=== PATIENT | female | born 1990 | race Caucasian/White ===

== ENCOUNTER → 2020-03-25 13:52 | Outpatient (BNVA) | payer MEDICAID, SELFPAY | PROVIDERS: Visit Provider Internal Medicine | DX: F11.99 Opioid use, unspecified with unspecified opioid-induced disorder (principal) | CPT/HCPCS: 80305; 99211 ==

== ENCOUNTER → 2020-04-09 13:24 | Outpatient (BNVA) | payer MEDICAID, SELFPAY | PROVIDERS: Visit Provider Internal Medicine | DX: Z51.81 Encounter for therapeutic drug level monitoring (principal); Z79.899 Other long term (current) drug therapy | CPT/HCPCS: 80305; 99211 ==

== ENCOUNTER → 2020-04-23 13:58 | Outpatient (BNVA) | payer MEDICAID, SELFPAY | PROVIDERS: Visit Provider Internal Medicine | DX: F11.99 Opioid use, unspecified with unspecified opioid-induced disorder (principal) | CPT/HCPCS: 80305; 99211 ==

== ENCOUNTER → 2020-05-21 14:58 | Outpatient (BNVA) | payer MEDICAID, SELFPAY | PROVIDERS: Visit Provider Internal Medicine | DX: Z76.89 Persons encountering health services in other specified circumstances (principal) ==

== ENCOUNTER → 2020-06-18 15:08 | Outpatient (BNVA) | payer MEDICAID, SELFPAY | PROVIDERS: Visit Provider Internal Medicine | DX: Z76.89 Persons encountering health services in other specified circumstances (principal) ==

== ENCOUNTER → 2020-07-02 15:09 | Outpatient (BNVA) | payer MEDICAID, SELFPAY | PROVIDERS: PCP Nurse Practitioner Family; Visit Provider Internal Medicine | DX: Z76.89 Persons encountering health services in other specified circumstances (principal) ==

== ENCOUNTER → 2020-07-16 13:05 | Outpatient (BNVA) | payer MEDICAID, SELFPAY | PROVIDERS: Visit Provider Internal Medicine | DX: Z76.89 Persons encountering health services in other specified circumstances (principal) ==

== ENCOUNTER → 2020-07-30 13:11 | Outpatient (BNVA) | payer MEDICAID, SELFPAY | PROVIDERS: Visit Provider Internal Medicine ==

== ENCOUNTER → 2020-08-20 13:38 | Outpatient (BNVA) | payer MEDICAID, SELFPAY | PROVIDERS: Visit Provider Internal Medicine | DX: F11.20 Opioid dependence, uncomplicated (principal) | CPT/HCPCS: 80305; 99212 ==

== ENCOUNTER → 2020-09-17 13:37 | Outpatient (BNVA) | payer MEDICAID, SELFPAY | PROVIDERS: Visit Provider Internal Medicine | DX: F11.99 Opioid use, unspecified with unspecified opioid-induced disorder (principal); Z51.81 Encounter for therapeutic drug level monitoring | CPT/HCPCS: 80305; 99212 ==

== ENCOUNTER → 2020-10-15 13:44 | Outpatient (BNVA) | payer MEDICAID, SELFPAY | PROVIDERS: Visit Provider Internal Medicine | DX: Z51.81 Encounter for therapeutic drug level monitoring (principal) | CPT/HCPCS: 80305; 99211 ==

== ENCOUNTER → 2020-11-12 15:09 | Outpatient (BNVA) | payer MEDICAID, SELFPAY | PROVIDERS: Visit Provider Internal Medicine | DX: F11.20 Opioid dependence, uncomplicated (principal); Z51.81 Encounter for therapeutic drug level monitoring; Z79.899 Other long term (current) drug therapy | CPT/HCPCS: 80305; 99211 ==

== ENCOUNTER → 2020-12-10 15:22 | Outpatient (BNVA) | payer MEDICAID, SELFPAY | PROVIDERS: Visit Provider Internal Medicine | DX: Z51.81 Encounter for therapeutic drug level monitoring (principal) | CPT/HCPCS: 80305; 99211 ==

== ENCOUNTER → 2021-01-07 15:30 | Outpatient (BNVA) | payer MEDICAID, SELFPAY | PROVIDERS: Visit Provider Internal Medicine | DX: Z51.81 Encounter for therapeutic drug level monitoring (principal) | CPT/HCPCS: 80305 ==

== ENCOUNTER → 2021-02-04 15:51 | Outpatient (BNVA) | payer MEDICAID, SELFPAY | PROVIDERS: Visit Provider Internal Medicine | DX: Z51.81 Encounter for therapeutic drug level monitoring (principal) | CPT/HCPCS: 80305 ==

== ENCOUNTER 2021-03-04 13:23 | Outpatient (REF) | payer MEDICAID, SELFPAY ==
[2021-03-04 17:15] LABS: Fentanyl, urine Not Detected (Not Detect)
[2021-03-14 07:31] LABS: Buprenorphine 319
[2021-03-14 07:32] LABS: Norbuprenorphine 805
[2021-03-14 07:33] LABS: Naloxone 553
== END 2021-03-04 13:24 | disposition home or self-care (01) ==
LOC: HO.LAB 13:23
PROVIDERS: Visit Provider Internal Medicine
DX: F11.20 Opioid dependence, uncomplicated (principal)
CPT/HCPCS: 80305; 80307; 80348; 80362; 99212

== ENCOUNTER → 2021-04-01 14:40 | Outpatient (BNVA) | payer MEDICAID, SELFPAY | PROVIDERS: Visit Provider Internal Medicine | DX: Z51.81 Encounter for therapeutic drug level monitoring (principal); F11.90 Opioid use, unspecified, uncomplicated | CPT/HCPCS: 80305; 99212 ==

== ENCOUNTER → 2021-04-29 15:19 | Outpatient (BNVA) | payer MEDICAID, SELFPAY | PROVIDERS: Visit Provider Internal Medicine | DX: F11.99 Opioid use, unspecified with unspecified opioid-induced disorder (principal); Z88.1 Allergy status to other antibiotic agents; Z88.0 Allergy status to penicillin; Z51.81 Encounter for therapeutic drug level monitoring | CPT/HCPCS: 80305; 99212 ==

== ENCOUNTER → 2021-05-27 14:56 | Outpatient (BNVA) | payer MEDICAID, SELFPAY | PROVIDERS: Visit Provider Internal Medicine | DX: Z51.81 Encounter for therapeutic drug level monitoring (principal); F11.20 Opioid dependence, uncomplicated | CPT/HCPCS: 80305; 99212 ==

== ENCOUNTER → 2021-06-24 14:17 | Outpatient (BNVA) | payer MEDICAID, SELFPAY | PROVIDERS: Visit Provider Internal Medicine | DX: Z51.81 Encounter for therapeutic drug level monitoring (principal); F11.20 Opioid dependence, uncomplicated | CPT/HCPCS: 80305; 99212 ==

== ENCOUNTER → 2021-08-21 13:32 | Outpatient (BNVA) | payer MEDICAID, SELFPAY | PROVIDERS: Visit Provider Internal Medicine | DX: Z51.81 Encounter for therapeutic drug level monitoring (principal); F11.20 Opioid dependence, uncomplicated | CPT/HCPCS: 80305; 99212 ==

== ENCOUNTER → 2021-10-14 14:36 | Outpatient (BNVA) | payer MEDICAID, SELFPAY | PROVIDERS: Visit Provider Internal Medicine | DX: F11.20 Opioid dependence, uncomplicated (principal) | CPT/HCPCS: 80305; 99212 ==

== ENCOUNTER → 2021-12-09 14:32 | Outpatient (BNVA) | payer MEDICAID, SELFPAY | PROVIDERS: Visit Provider Internal Medicine | DX: Z51.81 Encounter for therapeutic drug level monitoring (principal); F11.20 Opioid dependence, uncomplicated | CPT/HCPCS: 80305; 99212 ==

== ENCOUNTER → 2022-02-03 14:38 | Outpatient (BNVA) | payer MEDICAID, SELFPAY | PROVIDERS: Visit Provider Internal Medicine | DX: F11.20 Opioid dependence, uncomplicated (principal) | CPT/HCPCS: 99212 ==

== ENCOUNTER → 2022-03-31 14:49 | Outpatient (BNVA) | payer MEDICAID, SELFPAY | PROVIDERS: Visit Provider Internal Medicine | DX: F11.20 Opioid dependence, uncomplicated (principal); Z51.81 Encounter for therapeutic drug level monitoring; Z79.899 Other long term (current) drug therapy | CPT/HCPCS: 99212 ==

== ENCOUNTER → 2022-05-26 11:16 | Outpatient (BNVA) | payer MEDICAID, SELFPAY | PROVIDERS: Visit Provider Internal Medicine | DX: F11.20 Opioid dependence, uncomplicated (principal) | CPT/HCPCS: 99212 ==

== ENCOUNTER → 2022-07-20 15:54 | Outpatient (BNVA) | payer MEDICAID, SELFPAY | PROVIDERS: PCP Nurse Practitioner Family; Visit Provider Nurse Practitioner Psychiatric/Mental Health | DX: F11.20 Opioid dependence, uncomplicated (principal) | CPT/HCPCS: 99212 ==

== ENCOUNTER 2022-09-15 13:01 | Outpatient (REF) | payer MEDICAID, SELFPAY ==
[2022-09-15 14:47] LABS: Alanine Aminotransferase 16 U/L (0-31); Alkaline Phosphatase 82 U/L (39-117); Aspartate Amino Transferase 18 U/L (5-31); Bilirubin Direct < 0.2 mg/dL (0.0-0.5); Bilirubin Total 0.2 mg/dL (0.0-1.0); Total Protein 6.7 g/dL (6.5-8.0)
== END 2022-09-15 13:02 | disposition home or self-care (01) ==
LOC: HO.LAB 13:01
PROVIDERS: Absent Provider Nurse Practitioner Psychiatric/Mental Health; PCP Nurse Practitioner Family; Visit Provider Nurse Practitioner Psychiatric/Mental Health
DX: F11.20 Opioid dependence, uncomplicated (principal); Z79.899 Other long term (current) drug therapy
CPT/HCPCS: 36415; 80076; 80305; 99212

== ENCOUNTER → 2022-11-10 13:11 | Outpatient (BNVA) | payer MEDICAID, SELFPAY | PROVIDERS: PCP Nurse Practitioner Family; Visit Provider Nurse Practitioner Psychiatric/Mental Health | DX: F11.20 Opioid dependence, uncomplicated (principal) | CPT/HCPCS: 99212 ==

== ENCOUNTER 2023-01-12 14:01 | Outpatient (AMB) | payer OTHER, SELFPAY ==
[2023-01-12 14:08] VITALS: BP 108/66; PULSE 94; O2SAT 99
--- NOTE | 2023-01-12 14:08 | A.OFFVIS_ITS ---
Intake Vital Signs 01/12/23 14:08 BP 108/66 Blood Pressure Location Lt brachial Position Sitting Pulse 94 Pulse Oximetry (%) 99 Intake Visit Reasons: MAT Visit Allergies penicillin G Allergy (Verified 11/10/22 13:24) Unknown HPI MAT Visit HPI Details Patient presents for follow up Recently re-established care and services following insurance challenges Medication changes with psychiatry changed from Lexapro to Prozac 20mg reatrted therapy discussed Sublocade, hailey due to challenges obtaining suboxone over the last month [facility] Medical History Opioid use disorder Review of Systems Const Reports as per HPI and Reports no additional complaints Physical Exam Vital Signs: Last Vital Signs Pulse 94 01/12/23 14:08 BP 108/66 01/12/23 14:08 Pulse Ox 99 01/12/23 14:08 Const General: cooperative, healthy appearing, comfortable, well developed and alert Nutritional Appearance: well nourished Orientation/consciousness: patient oriented x3 Limitations: no limitations Neuro General: patient oriented x3 Psych Appearance: well kempt Mental Status: mental status grossly normal Speech and movement: Normal speech and movement present Affect: normal affect Attitude: cooperative Thought process: Normal thought process present Thought content: Normal thought content present Insight: Good insight present (Psych) Judgement: Good judgement present (Psych) Results AMB 14 Panel Urine Drug Screen 2 Urine Marijuana (THC) Positive Last Edit by Linh Dias RN on 01/12/23 15:1 1 Urine Cocaine Negative Last Edit by Linh Dias RN on 01/12/23 15:11 Urine Morphine Negative Last Edit by Linh Dias RN on 01/12/23 15:11 Urine Methamphetamine Negative Last Edit by Linh Dias RN on 01/12/23 15:1 1 Urine Amphetamine Negative Last Edit by Linh Dias RN on 01/12/23 15:11 Urine Benzodiazepine Negative Last Edit by Linh Dias RN on 01/12/23 15:11 Urine Barbiturates Negative Last Edit by Linh Dias RN on 01/12/23 15:11 Urine Methadone Negative Last Edit by Linh Dias RN on 01/12/23 15:11 Urine Buprenorphine Positive Last Edit by Linh Dias RN on 01/12/23 15:11 Urine Tricyclic Antidepressant Negative Last Edit by Linh Dias RN on 01/12/23 15:11 Urine MDMA Negative Last Edit by Linh Dias RN on 01/12/23 15:11 Urine Oxycodone Negative Last Edit by Linh Dias RN on 01/12/23 15:11 Urine Phencyclidine Negative Last Edit by Linh Dias RN on 01/12/23 15:11 Urine Propoxyphene Negative Last Edit by Linh Dias RN on 01/12/23 15:11 Results Reviewed Results Reviewed: Laboratory Last Values POC Urine Buprenorphine Positive 01/12/23 15:08 POC Urine Morphine Negative 01/12/23 15:08 POC Urine Oxycodone Negative 01/12/23 15:08 POC Urine Methadone Negative 01/12/23 15:08 POC Urine Propoxyphene Negative 01/12/23 15:08 POC Urine Barbiturates Negative 01/12/23 15:08 POC U Tricyclic Antidpr Negative 01/12/23 15:08 POC Urine PCP Negative 01/12/23 15:08 POC Ur Amphetamines Negative 01/12/23 15:08 POC Ur Methamphetamine Negative 01/12/23 15:08 POC Urine MDMA Negative 01/12/23 15:08 POC Ur Benzodiazepine Negative 01/12/23 15:08 POC Urine Cocaine Negative 01/12/23 15:08 POC Ur Marijuana (THC) Positive 01/12/23 15:08 Assessment & Plan Assessment & Plan (1) Opioid use disorder in remission: Code(s): F11.91 - Opioid use, unspecified, in remission Plan: * continue suboxone at current dose * follow up 8 weeks Orders: Orders AMB 14 Panel Urine Drug Screen 01/12/23 Z51.81 - Encounter for therapeutic drug level monitoring Medications: Refilled buprenorphine-naloxone 8-2 mg (Suboxone) 1 film sublingual BID 60 ea 1RF 30 days Coding Level of Care Code Est Pt Level 3 (90618) Diagnoses Opioid use disorder in remission F11.91
== END 2023-01-12 14:35 | disposition home or self-care (01) ==
LOC: HO.HCC 14:01
PROVIDERS: PCP Nurse Practitioner Family; Visit Provider Nurse Practitioner Psychiatric/Mental Health
DX: F11.91 Opioid use, unspecified, in remission (principal)
CPT/HCPCS: 99213

== ENCOUNTER → 2023-01-12 14:01 | Outpatient (BNVA) | payer OTHER, SELFPAY | PROVIDERS: PCP Nurse Practitioner Family; Visit Provider Nurse Practitioner Psychiatric/Mental Health | DX: F11.91 Opioid use, unspecified, in remission (principal); Z51.81 Encounter for therapeutic drug level monitoring; Z79.899 Other long term (current) drug therapy | CPT/HCPCS: 80305 ==

== ENCOUNTER 2023-03-11 13:15 | Outpatient (AMB) | payer MEDICAID, SELFPAY ==
--- NOTE | 2023-03-11 13:16 | A.OFFVIS_ITS ---
Intake Vital Signs 03/11/23 13:20 BP 126/84 Blood Pressure Location Lt radial Position Sitting Pulse 117 H Pulse Source Pulse Oximeter Pulse Oximetry (%) 98 Oxygen Delivery Method Room Air Comment had 2 monster drinks Intake Visit Reasons: MAT Visit Intake Note: the patient presents for a mat visit Administrative Support Manager Required: No Allergies penicillin G Allergy (Verified 03/11/23 13:22) Unknown Do you need a note to return to daycare/school/sports/work: No HPI MAT Visit HPI Details Patient presents for follow up Reporting worsening depression since changing medications-from lexapro to prozac Discontinued prozac 2 weeks ago and already feels some improvement in sx--appt with psychiatrist on 03/25 Numerous financial stressors Doing well with recovery. [facility] Medical History Opioid use disorder Review of Systems Const Reports as per HPI and Reports no additional complaints Physical Exam Vital Signs: Last Vital Signs Pulse 117 H 03/11/23 13:20 BP 126/84 03/11/23 13:20 Pulse Ox 98 03/11/23 13:20 Oxygen Delivery Method Room Air 03/11/23 13:20 Const General: cooperative, healthy appearing, comfortable, well developed and alert Nutritional Appearance: well nourished Orientation/consciousness: patient oriented x3 Limitations: no limitations Neuro General: patient oriented x3 Psych Appearance: well kempt Mental Status: mental status grossly normal Speech and movement: Normal speech and movement present Affect: normal affect Attitude: cooperative Thought process: Normal thought process present Thought content: Normal thought content present Insight: Good insight present (Psych) Judgement: Good judgement present (Psych) Assessment & Plan Assessment & Plan (1) Opioid use disorder in remission: Code(s): F11.91 - Opioid use, unspecified, in remission Plan: * continue suboxone at current dose * restart lexapro * provided information for [facility] Medications: Changed From escitalopram oxalate 10 mg PO DAILY To escitalopram oxalate take 1/2 tab daily for one week then increase to one tab daily 10 mg PO DAILY 30 tabs 0RF Refilled buprenorphine-naloxone 8-2 mg (Suboxone) 1 film sublingual BID 60 ea 1RF 30 days Coding Level of Care Code Est Pt Level 4 (76958) Diagnoses Opioid use disorder in remission F11.91
[2023-03-11 13:20] VITALS: BP 126/84; PULSE 117; O2SAT 98
== END 2023-03-11 14:39 | disposition home or self-care (01) ==
LOC: HO.HCC 13:15
PROVIDERS: PCP Nurse Practitioner Family; Visit Provider Nurse Practitioner Psychiatric/Mental Health
DX: F11.91 Opioid use, unspecified, in remission (principal)
CPT/HCPCS: 99214

== ENCOUNTER → 2023-03-11 13:15 | Outpatient (BNVA) | payer OTHER, SELFPAY | PROVIDERS: PCP Nurse Practitioner Family; Visit Provider Nurse Practitioner Psychiatric/Mental Health | DX: Z51.81 Encounter for therapeutic drug level monitoring (principal); F11.91 Opioid use, unspecified, in remission ==

== ENCOUNTER 2023-08-10 14:29 | Outpatient (AMB) | payer OTHER, SELFPAY ==
--- NOTE | 2023-08-10 14:31 | A.OFFVISCC_ITS ---
Intake Vital Signs 08/10/23 14:48 Height 5 ft 3.5 in Weight 133 lb 6 oz BMI 23.3 BP 128/74 Blood Pressure Location Lt radial Position Sitting Pulse 86 Pulse Source Pulse Oximeter Pulse Oximetry (%) 99 Oxygen Delivery Method Room Air Intake Visit Reasons: MAT Visit Intake Note: The patient presents for a mat visit Bi Consultant Required: No Allergies penicillin G Allergy (Verified 08/10/23 14:50) Unknown Medication List - Last Reconciled 08/10/23 by Mary Lou Pearson CNP buprenorphine-naloxone 8-2 mg (Suboxone) 1 film sublingual BID 30 days cyclobenzaprine 10 mg PO TID PRN gabapentin 600 mg PO TID naproxen 500 mg PO TID quetiapine ER (Seroquel XR) 150 mg PO BEDTIME Do you need a note to return to daycare/school/sports/work: No HPI MAT Visit HPI Details Patient presents for follow up Currently prescribed Suboxone Engaged in therapy every other week at [facility] Insurance issues resolved Brighter affect 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 house some [facility] Medical History (Updated 08/13/23 @ 20:15 by Mary Lou Pearson CNP) Opioid use disorder Review of Systems Const Reports as per HPI and Reports no additional complaints Physical Exam Vital Signs: Last Vital Signs Pulse 86 08/10/23 14:48 BP 128/74 08/10/23 14:48 Pulse Ox 99 08/10/23 14:48 Oxygen Delivery Method Room Air 08/10/23 14:48 BMI result Body Mass Index 23.3 Const General: cooperative, healthy appearing, comfortable and well groomed Results AMB 14 Panel Urine Drug Screen Urine Marijuana (THC) Positive Last Edit by Viviane Branch CMA on 08/10/23 14:51 Urine Cocaine Negative Last Edit by Viviane Branch CMA on 08/10/23 14:51 Urine Morphine Negative Last Edit by Viviane Branch CMA on 08/10/23 14:51 Urine Methamphetamine Negative Last Edit by Viviane Branch CMA on 08/10/23 14 :51 Urine Amphetamine Negative Last Edit by Viviane Branch CMA on 08/10/23 14:5 1 Urine Benzodiazepine Negative Last Edit by Viviane Branch CMA on 08/10/23 14:51 Urine Barbiturates Negative Last Edit by Viviane Branch CMA on 08/10/23 14: 51 Urine Methadone Negative Last Edit by Viviane Branch CMA on 08/10/23 14:51 Urine Buprenorphine Positive Last Edit by Viviane Branch CMA on 08/10/23 14 :51 Urine Tricyclic Antidepressant Positive Last Edit by Viviane Branch CMA on 08/10/23 14:51 Urine MDMA Negative Last Edit by Viviane Branch CMA on 08/10/23 14:51 Urine Oxycodone Negative Last Edit by Viviane Branch CMA on 08/10/23 14:51 Urine Phencyclidine Negative Last Edit by Viviane Branch CMA on 08/10/23 14 :51 Urine Propoxyphene Negative Last Edit by Viviane Branch CMA on 08/10/23 14: 51 Results Reviewed Results Reviewed: Laboratory Last Values POC Urine Buprenorphine Positive 08/10/23 14:36 POC Urine Morphine Negative 08/10/23 14:36 POC Urine Oxycodone Negative 08/10/23 14:36 POC Urine Methadone Negative 08/10/23 14:36 POC Urine Propoxyphene Negative 08/10/23 14:36 POC Urine Barbiturates Negative 08/10/23 14:36 POC U Tricyclic Antidpr Positive 08/10/23 14:36 POC Urine PCP Negative 08/10/23 14:36 POC Ur Amphetamines Negative 08/10/23 14:36 POC Ur Methamphetamine Negative 08/10/23 14:36 POC Urine MDMA Negative 08/10/23 14:36 POC Ur Benzodiazepine Negative 08/10/23 14:36 POC Urine Cocaine Negative 08/10/23 14:36 POC Ur Marijuana (THC) Positive 08/10/23 14:36 Assessment & Plan Assessment & Plan (1) Opioid use disorder in remission: Code(s): F11.91 - Opioid use, unspecified, in remission Plan: * continue suboxone at current dose * follow up 8 weeks Orders: Orders AMB 14 Panel Urine Drug Screen 08/10/23 Z51.81 - Encounter for therapeutic drug level monitoring Medications: Refilled buprenorphine-naloxone 8-2 mg (Suboxone) 1 film sublingual BID 60 ea 0RF 30 days Coding Level of Care Code Est Pt Level 3 (54952) Diagnoses Opioid use disorder in remission F11.91
[2023-08-10 14:48] VITALS: BP 128/74; PULSE 86; O2SAT 99; BMI 23.3
== END 2023-08-10 15:08 | disposition home or self-care (01) ==
PROVIDERS: PCP Nurse Practitioner Family; Visit Provider Nurse Practitioner Psychiatric/Mental Health
DX: F11.91 Opioid use, unspecified, in remission (principal)
CPT/HCPCS: 99213

== ENCOUNTER → 2023-08-10 14:29 | Outpatient (BNVA) | payer OTHER, SELFPAY | PROVIDERS: PCP Nurse Practitioner Family; Visit Provider Nurse Practitioner Psychiatric/Mental Health | DX: Z51.81 Encounter for therapeutic drug level monitoring (principal); F11.21 Opioid dependence, in remission | CPT/HCPCS: 80305; 99212 ==

== ENCOUNTER 2023-10-05 14:37 | Outpatient (AMB) | payer OTHER, SELFPAY ==
--- NOTE | 2023-10-05 14:37 | A.OFFVISCC_ITS ---
Vital Signs 10/05/23 14:48 BP 136/90 H Blood Pressure Location Lt brachial Position Sitting Pulse 100 Pulse Source Pulse Oximeter Pulse Oximetry (%) 97 Oxygen Delivery Method Room Air Intake Visit Reasons: MAT Visit Allergies penicillin G Allergy (Verified 10/05/23 14:37) Unknown HPI HPI MAT Visit: Details: Patient presents for follow up Reporting some feelings of sadness--stopped her medications about a month ago. Concerned that there would be a time she would be unable to afford them again and didn't want to have to go through that. Discussed benefits of continuing medications and supports if insurance every became an issue again. No issues related to recovery or suboxone [facility] Medical History (Updated 08/13/23 @ 20:15 by Mary Lou Pearson CNP) Opioid use disorder Review of Systems Const Reports as per HPI Physical Exam Vital Signs: Last Vital Signs Pulse 100 10/05/23 14:48 BP 136/90 H 10/05/23 14:48 Pulse Ox 97 10/05/23 14:48 Oxygen Delivery Method Room Air 10/05/23 14:48 Const General: cooperative, healthy appearing, comfortable and well groomed Assessment & Plan Assessment & Plan (1) Opioid use disorder in remission: Code(s): F11.91 - Opioid use, unspecified, in remission Category: Medical Plan: * continue suboxone at current dose * follow up 4 weeks * refilled escitalopram and seroquel Medications: New quetiapine ER 50 mg PO BEDTIME 30 tabs 0RF escitalopram oxalate 10 mg PO DAILY 90 tabs 3RF
[2023-10-05 14:48] VITALS: BP 136/90; PULSE 100; O2SAT 97
== END 2023-10-05 15:20 | disposition home or self-care (01) ==
PROVIDERS: PCP Nurse Practitioner Family; Visit Provider Nurse Practitioner Psychiatric/Mental Health
DX: F11.91 Opioid use, unspecified, in remission (principal)
CPT/HCPCS: 99214

== ENCOUNTER → 2023-10-05 14:37 | Outpatient (BNVA) | payer OTHER, SELFPAY | PROVIDERS: PCP Nurse Practitioner Family; Visit Provider Nurse Practitioner Psychiatric/Mental Health | DX: F11.91 Opioid use, unspecified, in remission (principal); Z79.899 Other long term (current) drug therapy; Z51.81 Encounter for therapeutic drug level monitoring | CPT/HCPCS: 99212 ==

== ENCOUNTER 2023-12-13 09:08 | Outpatient (AMB) | payer OTHER, SELFPAY ==
--- NOTE | 2023-12-13 09:31 | A.OFFVISCC_ITS ---
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 Feels an improvement in her mood Sleeping better. No issues related to suboxone [facility] Medical History (Updated 08/13/23 @ 20:15 by Mary Lou Pearson CNP) Opioid use disorder Review of Systems Const Reports as per HPI Physical Exam Const General: cooperative, healthy appearing, comfortable and well groomed Assessment & Plan Assessment & Plan (1) Opioid use disorder in remission: Code(s): F11.91 - Opioid use, unspecified, in remission Category: Medical Plan: * continue suboxone at current dose * follow up 8 weeks * encouraged to call office prior to next appt if necessary
== END 2023-12-13 09:40 | disposition home or self-care (01) ==
PROVIDERS: PCP Nurse Practitioner Family; Visit Provider Nurse Practitioner Psychiatric/Mental Health
DX: F11.91 Opioid use, unspecified, in remission (principal)
CPT/HCPCS: 99213

== ENCOUNTER → 2023-12-13 09:08 | Outpatient (BNVA) | payer OTHER, SELFPAY | PROVIDERS: PCP Nurse Practitioner Family; Visit Provider Nurse Practitioner Psychiatric/Mental Health | DX: F11.91 Opioid use, unspecified, in remission (principal); Z79.899 Other long term (current) drug therapy | CPT/HCPCS: 99212 ==

== ENCOUNTER 2024-02-08 08:36 | Outpatient (AMB) | payer OTHER, SELFPAY ==
--- NOTE | 2024-02-08 08:37 | A.OFFVISCC_ITS ---
Intake Visit Reasons: MAT Tele Allergies penicillin G Allergy (Verified 10/05/23 14:37) Unknown HPI HPI MAT Tele: Details: Patient presents for follow up via telehealth Currently prescribed Suboxone 8mg BID Tolerating current dose Working with 2 clients including the weekends [facility] Medical History (Updated 08/13/23 @ 20:15 by Mary Lou Pearson CNP) Opioid use disorder Review of Systems Const Reports as per HPI and Reports no additional complaints Telehealth Telehealth Telehealth Platform: Telephone Location of provider rendering services: practice address Location of patient: address on file Patient Identification confirmed using: Name, : Yes Telehealth method: voice only Patient verbally consented to treatment: Yes Patient verbally consented to billing insurance company: Yes Patient informed of any privacy concerns related to visit: Yes Minutes spent on Phone/Video with Pt.: 15 Assessment & Plan Assessment & Plan (1) Opioid use disorder in remission: Code(s): F11.91 - Opioid use, unspecified, in remission Category: Medical Plan: * continue suboxone at current dose * refill due in 2 weeks * will follow up with PCP before next appt
== END 2024-02-08 08:52 | disposition home or self-care (01) ==
PROVIDERS: PCP Nurse Practitioner Family; Visit Provider Nurse Practitioner Psychiatric/Mental Health
DX: F11.91 Opioid use, unspecified, in remission (principal)
CPT/HCPCS: 99213

== ENCOUNTER → 2024-02-08 08:36 | Outpatient (BNVA) | payer OTHER, SELFPAY | PROVIDERS: PCP Nurse Practitioner Family; Visit Provider Nurse Practitioner Psychiatric/Mental Health ==

== ENCOUNTER 2024-04-04 08:55 | Outpatient (AMB) | payer MEDICAID, SELFPAY ==
--- NOTE | 2024-04-04 08:56 | A.OFFVISCC_ITS ---
Intake Visit Reasons: MAT Tele Allergies penicillin G Allergy (Verified 10/05/23 14:37) Unknown HPI HPI MAT Tele: Details: Patient presents for follow up via telehealth Currently prescribed Suboxone 8mg BID Continues to be engaged in recovery Still working FT tolerating all medications [facility] Medical History (Updated 08/13/23 @ 20:15 by Mary Lou Pearson CNP) Opioid use disorder Review of Systems Const Reports as per HPI Telehealth Telehealth Telehealth Platform: Telephone Location of provider rendering services: practice address Location of patient: address on file Patient Identification confirmed using: Name, : Yes Telehealth method: voice only Patient verbally consented to treatment: Yes Patient verbally consented to billing insurance company: Yes Minutes spent on Phone/Video with Pt.: 15 Assessment & Plan Assessment & Plan (1) Opioid use disorder in remission: Code(s): F11.91 - Opioid use, unspecified, in remission Category: Medical Plan: * continue suboxone at current dose * follow up 2 months Medications: Refilled buprenorphine-naloxone 8-2 mg (Suboxone) 1 film sublingual BID 30 days 60 ea 1RF
== END 2024-04-04 09:36 | disposition home or self-care (01) ==
PROVIDERS: PCP Nurse Practitioner Family; Visit Provider Nurse Practitioner Psychiatric/Mental Health
DX: F11.91 Opioid use, unspecified, in remission (principal)
CPT/HCPCS: 99213

== ENCOUNTER → 2024-04-04 08:55 | Outpatient (BNVA) | payer MEDICAID, SELFPAY | PROVIDERS: PCP Nurse Practitioner Family; Visit Provider Nurse Practitioner Psychiatric/Mental Health | DX: F11.91 Opioid use, unspecified, in remission (principal) ==

== ENCOUNTER 2024-09-05 11:12 | Outpatient (AMB) | payer MEDICAID, SELFPAY ==
--- NOTE | 2024-09-05 11:29 | MHC.AM.SUB ---
Intake Visit Reasons: MAT Office Allergies penicillin G Allergy (Verified 10/05/23 14:37) Unknown HPI HPI MAT Office: Details: Patient presents for follow up Currently prescribed Suboxone 8mg BID Tolerating current dose Her and her continue to have difficulty with insurance. 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 No issues related to recovery Review of Systems Const Reports as per HPI and Reports no additional complaints Physical Exam Const General: cooperative, healthy appearing, comfortable and well groomed [facility] Medical History (Updated 08/13/23 @ 20:15 by Mary Lou Pearson CNP) Opioid use disorder Assessment & Plan Assessment & Plan (1) Opioid use disorder in remission: Code(s): F11.91 - Opioid use, unspecified, in remission Category: Medical Plan: continue suboxone at current dose follow up 4 months Medications: Discontinued escitalopram oxalate Discontinued Reason: Patient no longer taking 10 mg PO DAILY 90 tabs 3RF
== END 2024-09-05 11:43 | disposition home or self-care (01) ==
LOC: HO.HCC 11:13
PROVIDERS: PCP Nurse Practitioner Family; Visit Provider Nurse Practitioner Psychiatric/Mental Health
DX: F11.91 Opioid use, unspecified, in remission (principal)
CPT/HCPCS: 99213

== ENCOUNTER → 2024-09-05 11:12 | Outpatient (BNVA) | payer MEDICAID, SELFPAY | PROVIDERS: PCP Nurse Practitioner Family; Visit Provider Nurse Practitioner Psychiatric/Mental Health | DX: Z51.81 Encounter for therapeutic drug level monitoring (principal); F11.91 Opioid use, unspecified, in remission | CPT/HCPCS: 99212 ==

== ENCOUNTER 2025-05-31 15:28 | Outpatient (AMB) | payer MEDICAID, SELFPAY ==
--- NOTE | 2025-05-31 15:37 | MHC.AM.SUB ---
Vital Signs 05/31/25 15:38 Height 5 ft 4 in Weight 126 lb BMI 21.6 BP 122/70 Pulse 120 H Pulse Oximetry (%) 99 Intake Visit Reasons: MAT Allergies penicillin G Allergy (Verified 05/31/25 15:38) Unknown Physical Exam Vital Signs: Last Vital Signs Pulse 120 H 05/31/25 15:38 BP 122/70 05/31/25 15:38 Pulse Ox 99 05/31/25 15:38 BMI result Body Mass Index 21.6 Results AMB 14 Panel Urine Drug Screen Urine Marijuana (THC) Positive Last Edit by Gracie Hanson CMA on 05/31/25 16:07 Urine Cocaine Positive Last Edit by Gracie Hanson CMA on 05/31/25 16:07 Urine Morphine Negative Last Edit by Gracie Hanson CMA on 05/31/25 16:07 Urine Methamphetamine Negative Last Edit by Gracie Hanson CMA on 05/31/25 16:07 Urine Amphetamine Negative Last Edit by Gracie Hanson CMA on 05/31/25 16:07 Urine Benzodiazepine Negative Last Edit by Gracie Hanson CMA on 05/31/25 16:07 Urine Barbiturates Negative Last Edit by Gracie Hanson CMA on 05/31/25 16:07 Urine Methadone Negative Last Edit by Gracie Hanson CMA on 05/31/25 16:07 Urine Buprenorphine Positive Last Edit by Gracie Hanson CMA on 05/31/25 16:07 Urine Tricyclic Antidepressant Positive Last Edit by Gracie Hanson CMA on 05/31/25 16:07 Urine MDMA Negative Last Edit by Gracie Hanson CMA on 05/31/25 16:07 Urine Oxycodone Negative Last Edit by Gracie Hanson CMA on 05/31/25 16:07 Urine Phencyclidine Negative Last Edit by Gracie Hanson CMA on 05/31/25 16:07 Urine Propoxyphene Negative Last Edit by Gracie Hanson CMA on 05/31/25 16:07 [facility] Medical History (Updated 08/13/23 @ 20:15 by Mary Lou Michel, [employer] FIN[employer]CIAL APPLICATION DEVELOPER) Opioid use disorder Assessment & Plan Assessment & Plan Orders: Orders AMB 14 Panel Urine Drug Screen Today Z51.81 - Encounter for therapeutic drug level monitoring
[2025-05-31 15:38] VITALS: BP 122/70; PULSE 120; O2SAT 99; BMI 21.6
== END 2025-05-31 16:15 | disposition home or self-care (01) ==
LOC: HO.HCC 15:28
PROVIDERS: PCP Nurse Practitioner Family; Visit Provider Internal Medicine
DX: Z51.81 Encounter for therapeutic drug level monitoring (principal)

== ENCOUNTER → 2025-05-31 15:28 | Outpatient (BNVA) | payer MEDICAID, SELFPAY | PROVIDERS: PCP Nurse Practitioner Family; Visit Provider Internal Medicine | DX: F11.91 Opioid use, unspecified, in remission (principal); Z51.81 Encounter for therapeutic drug level monitoring | CPT/HCPCS: 80307; 99212 ==